=== PATIENT | female | born 1945 | race African-American/Black ===

== ENCOUNTER → 2017-01-16 | Outpatient (CLI) | payer OTHER | LOC: HYPER 07:15 | DX: L89.323 Pressure ulcer of left buttock, stage 3 (principal); L89.154 Pressure ulcer of sacral region, stage 4; L89.310 Pressure ulcer of right buttock, unstageable; Z86.73 Personal history of transient ischemic attack (TIA), and cerebral infarction without residual deficits ==

== ENCOUNTER → 2017-01-30 | Outpatient (CLI) | payer OTHER | LOC: HYPER 07:01 | DX: L89.154 Pressure ulcer of sacral region, stage 4 (principal); L89.220 Pressure ulcer of left hip, unstageable; L89.210 Pressure ulcer of right hip, unstageable; L89.323 Pressure ulcer of left buttock, stage 3; Z86.73 Personal history of transient ischemic attack (TIA), and cerebral infarction without residual deficits ==

== ENCOUNTER → 2017-02-13 | Outpatient (CLI) | payer OTHER | LOC: HYPER 06:48 | DX: L89.154 Pressure ulcer of sacral region, stage 4 (principal); L89.323 Pressure ulcer of left buttock, stage 3; L89.220 Pressure ulcer of left hip, unstageable; L89.210 Pressure ulcer of right hip, unstageable; Z86.73 Personal history of transient ischemic attack (TIA), and cerebral infarction without residual deficits ==

== ENCOUNTER → 2017-02-27 | Outpatient (CLI) | payer OTHER | LOC: HYPER 07:06 | DX: L89.323 Pressure ulcer of left buttock, stage 3 (principal); L89.154 Pressure ulcer of sacral region, stage 4; L89.220 Pressure ulcer of left hip, unstageable; L89.210 Pressure ulcer of right hip, unstageable; Z86.73 Personal history of transient ischemic attack (TIA), and cerebral infarction without residual deficits ==